=== PATIENT | female | born 1960 | race Asian ===

== ENCOUNTER 2023-07-25 07:30 | Day surgery (SDC) | payer BC ==
[2023-07-24 10:03] VITALS: BMI 29.2
[~2023-07-25 07:30] MED LIST: EPINEPHrine 0.3 MG, Dextrose 50% 3 ML in Ophthalmic Irrigation Solution 500 ML IRR SCH
[2023-07-25] MEDS ORDERED: PHENYLephrine 2.5% Ophth Soln 15 ml Bottle ONE (07:58)
[2023-07-25] MEDS ORDERED: Cyclopentolate 1% Opth Drop 2 ML BOT ONE (07:58)
[2023-07-25] MEDS ORDERED: fentaNYL PF 100 MCG/2 ML SYRINGE ONE (08:23)
[2023-07-25] MEDS ORDERED: Midazolam HCl 2 mg/2 ml Vial ONE (08:24)
[2023-07-25] MEDS ORDERED: Maxitrol 0.1% Opth Oint 3.5 GM TUBE ONE (08:37)
[2023-07-25] MEDS ORDERED: PROPOFOL 200 MG/20 ML VIAL ONE (08:37)
[2023-07-25] MEDS ORDERED: Dexamethasone 4 mg/ml Vial ONE ×2 (08:37→09:22)
[2023-07-25] MEDS ORDERED: Lidocaine 4% PF 5 ML AMP ONE (08:37)
[2023-07-25] MEDS ORDERED: Indocyanine Green 25 MG/10 ML VIAL ONE (08:37)
[2023-07-25] MEDS ORDERED: CEFAZOLIN 1 GM VIAL ONE (08:37)
[2023-07-25] MEDS ORDERED: Bupivacaine 0.75% 10 ML VIAL ONE (08:37)
== END 2023-07-25 10:43 | disposition home or self-care (01) ==
LOC: SDC 07:30
PROVIDERS: ATTEND Ophthalmology Retina Specialist
PROC: 08NF3ZZ Release Left Retina, Percutaneous Approach (ICD-10-PCS; principal; 2023-07-25)
PROC: 08T53ZZ Resection of Left Vitreous, Percutaneous Approach (ICD-10-PCS; principal; 2023-07-25)
DX: H35.342 Macular cyst, hole, or pseudohole, left eye (principal); I10 Essential (primary) hypertension; E78.5 Hyperlipidemia, unspecified; J45.909 Unspecified asthma, uncomplicated; E11.9 Type 2 diabetes mellitus without complications; M10.9 Gout, unspecified; Z98.890 Other specified postprocedural states
CPT/HCPCS: 36416; 67025; J0171; J0690; J1100; J2250; J2704; J3490

== ENCOUNTER 2024-04-23 08:03 | Outpatient (CLI) | payer BC | END 2024-04-23 08:04 | disposition home or self-care (01) | LOC: BICMAMMO 08:03 | PROVIDERS: ATTEND Nurse Practitioner | DX: N63.10 Unspecified lump in the right breast, unspecified quadrant (principal); N63.20 Unspecified lump in the left breast, unspecified quadrant; R92.8 Other abnormal and inconclusive findings on diagnostic imaging of breast | CPT/HCPCS: 76642; 77066; G0279 ==

== ENCOUNTER 2025-02-16 12:10 | Inpatient (IN) | payer BC, OTHER ==
[2025-02-16 12:50] LABS: #Basophils Less than 0.03 10x3/uL (0.0-0.2); #Eosinophils 0.17 10x3/uL (0.0-0.7); #Monocytes 0.52 10x3/uL (0.11-0.59); #Neutrophils 3.98 10x3/uL (1.40-6.50); %Basophils 0.3 % (0.0-1.0); %Eosinophils 2.6 % (0.0-10.0); %Lymphocytes 28.2 % (21.0-51.0); %Monocytes 7.9 % (0.0-10.0); %Neutrophils 60.7 % (42.0-75.0); Hematocrit 38.6 % (36.0-47.0); Hemoglobin 12.0 g/dL (12.0-16.0); Mean Corpuscular Hemoglobin 27.0 pg (27.0-31.0); Mean Corpuscular Volume 86.9 fL (78.0-98.0); Platelet Count 385 10x3/uL (130-400); Red Blood Cell (RBC) Count 4.44 mill/uL (4.20-5.40); White Blood Cell (WBC) Count 6.56 10x3/uL (4.8-10.8)
[2025-02-16 13:03] LABS: INR-International Normal Ratio 1.1; Prothrombin Time 14.0 sec (12.0-14.7)
[2025-02-16 13:07] LABS: ALT (SGPT) 12 U/L (Less than 34); AST (SGOT) 27 U/L (11-34); Albumin 3.9 g/dL (3.1-4.5); Alkaline Phosphatase 59 U/L (40-110); Anion Gap 24 mmol/L (10-20); BUN (Urea Nitrogen) 48 mg/dL (9.8-20.1); Bilirubin, Total 0.3 mg/dL (0.3-1.2); Calc. Creatinine Clearance 0 mL/min (70-130); Calcium 11.2 mg/dL (7.8-10.44); Carbon Dioxide 19 mmol/L (23-31); Chloride 103 mmol/L (98-107); Globulin 4.0 g/dL (2.4-3.5); Glucose 63 mg/dL (80-115); Potassium 4.2 mmol/L (3.5-5.1); Sodium 142 mmol/L (136-145)
[2025-02-16] MEDS ORDERED: Aspirin 325 MG TAB ONE (14:44)
[2025-02-16] MEDS ORDERED: hydrALAZINE 20 MG/ML VIAL SLOW IVP PRN (15:08)
[2025-02-16] MEDS ORDERED: Senokot S 8.6-50 MG TAB PO PRN (15:08)
[2025-02-16] MEDS ORDERED: Ondansetron PF 4 MG/2 ML Vial IVP PRN (15:08)
[2025-02-16] MEDS ORDERED: Melatonin 3 MG TAB PO PRN (15:08)
[2025-02-16] MEDS ORDERED: Acetaminophen 325 MG TAB PO PRN (15:08)
[2025-02-16] MEDS ORDERED: Glucagon 1 MG/ML KIT IM PRN (15:17)
[2025-02-16] MEDS ORDERED: Dextrose 50% Abboject 50 ML SYRINGE SLOW IVP PRN (15:17)
[2025-02-16 22:58] VITALS: BMI 22.3
[2025-02-16] MEDS: Heparin 5,000 UNITS/ML VIAL SC SCH (23:36)
[2025-02-17 04:02] LABS: #Basophils 0.03 10x3/uL (0.0-0.2); #Eosinophils 0.38 10x3/uL (0.0-0.7); #Monocytes 0.81 10x3/uL (0.11-0.59); #Neutrophils 5.09 10x3/uL (1.40-6.50); %Basophils 0.3 % (0.0-1.0); %Eosinophils 4.1 % (0.0-10.0); %Lymphocytes 32.6 % (21.0-51.0); %Monocytes 8.6 % (0.0-10.0); %Neutrophils 54.3 % (42.0-75.0); Hematocrit 30.3 % (36.0-47.0); Hemoglobin 9.8 g/dL (12.0-16.0); Mean Corpuscular Hemoglobin 27.8 pg (27.0-31.0); Mean Corpuscular Volume 85.8 fL (78.0-98.0); Platelet Count 322 10x3/uL (130-400); Red Blood Cell (RBC) Count 3.53 mill/uL (4.20-5.40); White Blood Cell (WBC) Count 9.38 10x3/uL (4.8-10.8)
[2025-02-17 05:13] LABS: Anion Gap 15 mmol/L (10-20); BUN (Urea Nitrogen) 35 mg/dL (9.8-20.1); Calc. Creatinine Clearance 35 mL/min (70-130); Calcium 9.1 mg/dL (7.8-10.44); Carbon Dioxide 21 mmol/L (23-31); Cardiac Risk 5.4 (Less than 4.5); Chloride 107 mmol/L (98-107); Cholesterol 147 mg/dl (< 200 Desired); Glucose 78 mg/dL (80-115); HDL Cholesterol 27 mg/dL (>60 Neg Risk); LDL Cholesterol, Calculated 60 mg/dL; Potassium 3.6 mmol/L (3.5-5.1); Sodium 139 mmol/L (136-145); Triglycerides 301 mg/dL (Less than 150)
[2025-02-17] MEDS: Aspirin 81 mg Enteric Coated Tablet PO SCH (08:59)
[2025-02-17] MEDS ORDERED: glipiZIDE 10 MG TAB PO SCH (09:00)
[2025-02-17 13:18] LABS: Influenza A by NAA Not Detected (NotDetected); Influenza B by NAA Not Detected (NotDetected); RSV by NAA Not Detected (NotDetected); SARS-CoV-2 NAA Rapid Test Not Detected (NotDetected)
[2025-02-17] MEDS ORDERED: Allopurinol 300 MG TAB PO SCH (21:00)
[2025-02-18 04:31] LABS: #Basophils 0.04 10x3/uL (0.0-0.2); #Eosinophils 0.46 10x3/uL (0.0-0.7); #Monocytes 0.56 10x3/uL (0.11-0.59); #Neutrophils 3.15 10x3/uL (1.40-6.50); %Basophils 0.6 % (0.0-1.0); %Eosinophils 6.5 % (0.0-10.0); %Lymphocytes 40.4 % (21.0-51.0); %Monocytes 7.9 % (0.0-10.0); %Neutrophils 44.3 % (42.0-75.0); Hematocrit 29.7 % (36.0-47.0); Hemoglobin 9.6 g/dL (12.0-16.0); Mean Corpuscular Hemoglobin 27.3 pg (27.0-31.0); Mean Corpuscular Volume 84.4 fL (78.0-98.0); Platelet Count 312 10x3/uL (130-400); Red Blood Cell (RBC) Count 3.52 mill/uL (4.20-5.40); White Blood Cell (WBC) Count 7.10 10x3/uL (4.8-10.8)
[2025-02-18 04:50] LABS: Anion Gap 15 mmol/L (10-20); BUN (Urea Nitrogen) 27 mg/dL (9.8-20.1); Calc. Creatinine Clearance 42 mL/min (70-130); Calcium 9.5 mg/dL (7.8-10.44); Carbon Dioxide 20 mmol/L (23-31); Chloride 109 mmol/L (98-107); Glucose 98 mg/dL (80-115); Potassium 3.5 mmol/L (3.5-5.1); Sodium 140 mmol/L (136-145)
[2025-02-18 11:52] VITALS: TEMP 97.7
[2025-02-18 15:28] VITALS: BP 92/63
== END 2025-02-18 19:19 | disposition home or self-care (01) | DRG 69 ==
LOC: ERS 12:10 → ERHOLD 14:55 → 2SE 22:07 → OBSVTOIN 02-17 15:04
PROVIDERS: ADMIT Family Medicine; ATTEND Internal Medicine
DX: G45.9 Transient cerebral ischemic attack, unspecified (principal); N17.9 Acute kidney failure, unspecified; I10 Essential (primary) hypertension; E78.5 Hyperlipidemia, unspecified; E11.649 Type 2 diabetes mellitus with hypoglycemia without coma; G93.89 Other specified disorders of brain; L40.50 Arthropathic psoriasis, unspecified; S05.11XA Contusion of eyeball and orbital tissues, right eye, initial encounter; D64.9 Anemia, unspecified; Z88.8 Allergy status to other drugs, medicaments and biological substances; Z98.41 Cataract extraction status, right eye; Z98.42 Cataract extraction status, left eye; Z98.890 Other specified postprocedural states
CPT/HCPCS: 36415; 36416; 70450; 70486; 70551; 70552; 71045; 72125; 76376; 80048; 80053; 80061; 83036; 84484; 85025; 85610; 87637; 93005; 93306; 95700; 95711; 95957; 96372; G0378; J1644; J7030

== ENCOUNTER 2025-05-03 14:54 | Outpatient (CLI) | payer OTHER | END 2025-05-03 14:55 | disposition home or self-care (01) | LOC: BICMAMMO 14:54 | PROVIDERS: ATTEND Nurse Practitioner | DX: Z12.31 Encounter for screening mammogram for malignant neoplasm of breast (principal) | CPT/HCPCS: 77063; 77067 ==

== ENCOUNTER 2025-05-11 15:16 | Outpatient (CLI) | payer OTHER | END 2025-05-11 15:17 | disposition home or self-care (01) | LOC: BICMAMMO 15:16 | PROVIDERS: ATTEND Internal Medicine | DX: Z13.820 Encounter for screening for osteoporosis (principal); M81.0 Age-related osteoporosis without current pathological fracture | CPT/HCPCS: 77080 ==